=== PATIENT | male | born 1970 | race Caucasian/White ===

== ENCOUNTER 2019-10-09 15:52 | Emergency (ER) | payer SELFPAY ==
[~2019-10-09] VITALS: Ht 177.8 cm; Wt 85.6 kg
[2019-10-09 15:58] VITALS: BP 142/88
[2019-10-09] MEDS ORDERED: KETOROLAC 30 MG/1 ML IM ONE (16:30)
[2019-10-09] MEDS ORDERED: KETOROLAC 30 MG/1 ML ONE (16:46)
--- NOTE | 2019-10-09 16:47 | NUR ---
PT REFUSED TORADOL STATING HE ONLY WANTS TO TAKE ORAL MEDICATION. PT OFFERED IBUPROFEN-PT STATES I ALREADY TOOK ONE DOSE OF IBUPROFEN BEFORE COMING IN.
== END 2019-10-09 17:34 ==
LOC: ED 17:28
DX: G89.11 Acute pain due to trauma (principal); M25.512 Pain in left shoulder; M19.012 Primary osteoarthritis, left shoulder; F17.200 Nicotine dependence, unspecified, uncomplicated; Z72.9 Problem related to lifestyle, unspecified; Z75.9 Unspecified problem related to medical facilities and other health care; W01.0XXA Fall on same level from slipping, tripping and stumbling without subsequent striking against object, initial encounter; Y93.89 Activity, other specified; Y92.89 Other specified places as the place of occurrence of the external cause; Y99.8 Other external cause status
CPT/HCPCS: 99283